=== PATIENT | male | born 1995 | race Caucasian/White ===

== ENCOUNTER 2023-01-15 21:58 | Emergency (ER) | payer SELFPAY ==
[2023-01-15 22:05] VITALS: BP 148/78; PULSE 87; RESP 18; TEMP 36.6; O2SAT 98; BMI 36.5
--- NOTE | 2023-01-15 22:10 | ECG_ITS ---
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 Measurements Intervals [place] Rate: 82 P: 41 ME: 161 QRS: -5 QRSD: 76 T: 61 QT: 342 QTc: 400 Interpretive Statements SINUS RHYTHM No previous ECG available for comparison Electronically Signed On 01-16-2023 8:17:50 BAR POINTER by David Stephenson M.D. [id number]
--- NOTE | 2023-01-15 22:10 | XRR_ITS ---
PROCEDURE INFORMATION: Exam: XR Chest Exam date and time: 01/15/2023 10:38 PM Age: 27 years old Clinical indication: Chest wall pain; Additional info: Chest pain TECHNIQUE: Imaging protocol: Radiologic exam of the chest. Views: 1 view. COMPARISON: No relevant prior studies available. FINDINGS: Lungs: Unremarkable. No consolidation. Pleural spaces: Unremarkable. No pleural effusion. No pneumothorax. Heart/Mediastinum: Unremarkable. No cardiomegaly. Bones/joints: Unremarkable. XR/XR chest 1V portable [id number] IMPRESSION: No acute findings.
--- NOTE | 2023-01-15 22:34 | ED_ITS ---
HPI - Chest Pain 2 General: Chief Complaint: Chest Pain Stated Complaint: CP Time Seen by Provider: 01/15/23 22:24 Source: patient and family Mode of arrival: ambulatory Limitations: no limitations History of Present Illness: Patient presents emergency department tonight accompanied by his for evaluation treatment of recurrent episodes of epigastric, left upper quadrant, and left-sided chest pains. Patient reports that for several months he has been having these episodes off and on. He notes that they are typically associated with eating but usually resulted in him feeling extremely nauseated, having emesis, and chest pains/upper abdominal pains. Patient states that this evening he was lying on the couch after eating dinner and was on his phone. He states he started to feel dizzy. He went to the bathroom thinking he needed to have a bowel movement and reports continued symptoms of dizziness. He reports 2 episodes of vomiting. He reports blurry vision. He notes that blurry vision and nausea have resolved but he still has discomfort in his epigastric and left upper quadrant region. Patient states it does not matter what types of food he eats when the symptoms start. They had tried some probiotics and an acids in the past but have not noticed it helping his symptoms and have therefore stopped. Review of Systems 2 General: Reports: 10 or more systems reviewed and unremarkable except in HPI and below Physical Exam 2 Const: COMMON NORMALS: no acute distress, patient oriented x3 and alert HENMT: COMMON NORMALS: normocephalic, atraumatic, hearing grossly normal bilaterally and moist oral mucous membranes HEAD & SCALP: normocephalic and atraumatic Eye: COMMON NORMALS: Equal, round and reactive pupils present, EOMs intact bilaterally and conjunctivae normal CONJUNCTIVA: Yes conjunctivae normal P UPIL: Yes Equal, round and reactive pupils present Neck/C-Spine: COMMON NORMALS: full ROM and no JVD Lymph: LYMPHATIC: no lymphadenopathy noted Resp: COMMON NORMALS: normal respiratory effort, No retractions, No use of accessory muscles and clear to auscultation bilaterally AUSCULTATION: clear to auscultation bilaterally Cardio: COMMON NORMALS: no JVD, regular rate and regular rhythm RATE: r egular rate RHYTHM: regular rhythm GI: OTHER: Normoactive bowel sounds throughout. Patient was tender on palpation in the epigastric region in the left upper quadrant however, these areas are soft. No palpable splenomegaly. Patient was nontender in the right upper quadrant- Hsu's negative. : COMMON NORMALS: Yes no CVA tenderness BLADDER/KIDNEY EXAM: Yes no CVA tenderness Back/Pelvis: COMMON NORMALS: no CVA tenderness, no thoracic nor lumbar tenderness and thoraco-lumbar ROM normal Extremity: COMMON NORMALS: normal to inspection, full ROM and capillary refill normal Neuro: COMMON NORMALS: patient oriented x3 SENSORIUM/ORIENTATION: Yes alert Psych: COMMON NORMALS: mental status grossly normal, Normal thought process present, cooperative, normal affect and activity/motor behavior normal T HOUGHT PROCESS: Normal thought process present Skin: COMMON NORMALS: no rashes or lesions noted and no wounds GENERAL SKIN EXAM: no rashes or lesions noted Course 2 Vital Signs: Vital signs: Vital Signs Temperature 97.9 F 01/15/23 22:05 Pulse Rate 88 01/16/23 00:28 Respiratory Rate 18 01/16/23 00:28 Blood Pressure 146/90 01/16/23 00:28 Pulse Oximetry 97 01/16/23 00:28 Oxygen Delivery Me thod Room Air 01/15/23 22:05 MDM - Chest Pain Medical Decision Making Patient presents today with recurrent epigastric and radiating chest pain associated with meals. Patient reports pain radiating across the left upper quadrant and into his back with nausea, vomiting, dizziness. Lab work today shows no signs of any cardiac involvement. Lab work is otherwise normal without signs of infection, anemia, elevated LFTs, dehydration, electrolyte imbalance, or pancreatitis. Patient was treated with a GI cocktail and given IV Pepcid and Protonix. We discussed continuing a PPI and an H2 gerson on a regular basis for up to 4 weeks to see if symptoms improve. However, we discussed following up with primary care-patient does not have a primary care but, his indicates she does work at a medical clinic and can get him follow-up. Discussed the importance of follow-up as patient may need a referral to GI to discuss an upper endoscopy if symptoms continue. Patient was given return precautions for change in condition including profuse vomiting, vomiting with bright red blood or coffee-ground emesis, change or worsening of pain, syncope, or chest pain that does not resolve. Patient verbalizes understanding and agreement to treatment plan. Differential Diagnosis Unlikely acute massive pulmonary embolism, acute respiratory failure, acute myocardial infarction, cardiac arrest or sudden cardiac Lab Data 01/15/23 22:35 12/03/23 22:35 Radiology Impressions Chest X-Ray 01/15/23 22:10 IMPRESSION: No acute findings. Laboratory Results WBC 8.10 10^3/uL (3.29-11.43) 01/15/23 22:35 RBC 5.16 10^6/uL (3.85-5.65) 01/15/23 22:35 Hgb 15.20 g/dL (11.27-16.99) 01/15/23 22:35 Hct 44.6 % (37-53) 01/15/23 22:35 MCV 86.4 fl (82-101) 01/15/23 22:35 MCH 29.5 pg (27-33) 01/15/23 22:35 MCHC 34.1 g/dL (30-55) 01/15/23 22:35 RDW 12.9 % (12.1-15.1) 01/15/23 22:35 Plt Count 253 10^3/cmm (157-399) 01/15/23 22:35 MPV 10.2 fL (7.4-10.4) 01/15/23 22:35 Neut % (Auto) 54.9 % 01/15/23 22:35 Lymph % (Auto) 34.0 % 01/15/23 22:35 [place] % (Auto) 8.5 % 01/15/23 22:35 Eos % (Auto) 2.0 % 01/15/23 22:35 Baso % (Auto) 0.4 % 01/15/23 22:35 Neut # (Auto) 4.45 10^3/uL (1.8-7.7) 01/15/23 22:35 Lymph # (Auto) 2.8 10^3/uL (0.8-4.8) 01/15/23 22:35 [place]well # (Auto) 0.7 10^3/uL (0.2-0.9) 01/15/23 22:35 Eos # (Auto) 0.2 10^3/uL (0.0-0.8) 01/15/23 22:35 Baso # (Auto) 0.0 10^3/uL (0.0-0.1) 01/15/23 22:35 Nucleated RBC % (auto) 0 % 01/15/23 22:35 Nucleated RBCs # 0.0 /100WBC 01/15/23 22:35 Sodium 140 mmol/L (136-145) 01/15/23 22:35 Potassium 3.9 mmol/L (3.5-5.1) 01/15/23 22:35 Chloride 105 mmol/L (98-107) 01/15/23 22:35 Carbon Dioxide 26 mmol/L (22-29) 01/15/23 22:35 Anion Gap 12.9 (5-19) 01/15/23 22:35 BUN 19 mg/dL (6-20) 01/15/23 22:35 Creatinine 1.0 mg/dL (0.7-1.2) 01/15/23 22:35 GFR Calculation 89.6 mL/min (90-130) L 01/15/23 22:35 Glucose 130 mg/dL (65-115) H 01/15/23 22:35 Calculated Osmolality 294 mOsm/kg (285-295) 01/15/23 22:35 Calcium 9.7 mg/dL (8.5-10.5) 01/15/23 22:35 Total Bilirubin 0.2 mg/dL (0.15-1.2) 01/15/23 22:35 AST 15 U/L (0-40) 01/15/23 22:35 ALT 30 U/L (0-41) 01/15/23 22:35 Alkaline Phosphatase 66 U/L (40-130) 01/15/23 22:35 Troponin T Baseline < 6 ng/L (0-15) 01/15/23 22:35 Troponin T 120 Minute 6.00 ng/L (0-15) 01/16/23 00:08 Delta Troponin T 0.95603 ABS# (0-10) 01/16/23 00:08 Total Protein 6.5 g/dL (6.6-8.7) L 01/15/23 22:35 Albumin 4.4 g/dL (3.5-5.2) 01/15/23 22:35 Globulin 2.1 g/dL (1.3-4.6) 01/15/23 22:35 Lipase 32 U/L (13-60) 01/15/23 22:35 All radiology interpretation(s) finalized by discharge Discharge Plan Discharge Patient Disposition: Home Clinical Impression: Abdominal pain, epigastric Condition: Stable Prescriptions: New Protonix 40 mg tablet,delayed release (DR/EC) 40 mg PO DAILY 28 Days Qty: 30 0RF Pepcid 20 mg tablet 20 mg PO BID 30 Days Qty: 60 0RF Discharge Orders: Discharge ED (Routine); Ordered 01/16/23 Ordered By: Lizette Waldron Discharge Diet: Advance as tolerated Discharge Activity: Increase activity as tolerated Patient Instructions: Epigastric Pain (ED) Activity Restrictions/Additional Instructions: Lab work today showed no acute concerns involving your heart or lungs. Your pancreatic enzymes were within normal limits and your lab work for concerns for gallbladder disease were also within normal limits. He had no signs of an elevated white blood cell count concerning for infection no signs of a decreased red blood cell count concerning for a bleeding ulcer. It is still possible that you might have a hernia but, certain hernias can slide in and out and are often not caught on imaging. It is also possible you could have strictures in your upper GI tract causing discomfort or spasming. I am going to treat you as we would with oral medication for these conditions. However, I do think it is a good idea to have follow-up with your primary care doctor. If you continue to have issues with your symptoms even with treatment it might be beneficial to have someone refer you onto a GI doctor to discuss an upper endoscopy to look more closely in the upper GI tract for any abnormalities. However, if you begin running fever, have profuse vomiting, have vomiting of bright red blood or coffee ground emesis, severe worsening or change of your abdominal pains-we do recommend returning for an evaluation through the ER. Coding Level of Care Code ED Marketing Communications Coordinator for Billy Echevarria
[2023-01-15 22:50] LABS: Basophils % 0.4 %; Eosinophils # 0.2 10^3/uL (0.0-0.8); Hematocrit 44.6 % (37-53); Lymphocytes # 2.8 10^3/uL (0.8-4.8); Mean Corpuscular HGB Conc 34.1 g/dL (30-55); Mean Corpuscular Hemoglobin 29.5 pg (27-33); Mean Corpuscular Volume 86.4 fl (82-101); Mean Platelet Volume 10.2 fL (7.4-10.4); Monocytes # 0.7 10^3/uL (0.2-0.9); Monocytes % 8.5 %; Neutrophils # 4.45 10^3/uL (1.8-7.7); Neutrophils % 54.9 %; Nucleated Red Blood Cells % 0 %; Platelet Count 253 10^3/cmm (157-399); Red Blood Count 5.16 10^6/uL (3.85-5.65); Red Cell Distribution Width 12.9 % (12.1-15.1)
[2023-01-15 23:13] LABS: Alanine Aminotransferase 30 U/L (0-41); Albumin Level 4.4 g/dL (3.5-5.2); Alkaline Phosphatase 66 U/L (40-130); Anion Gap 12.9 (5-19); Aspartate Amino Transferase 15 U/L (0-40); Blood Urea Nitrogen 19 mg/dL (6-20); Calcium 9.7 mg/dL (8.5-10.5); Carbon Dioxide 26 mmol/L (22-29); Chloride 105 mmol/L (98-107); Globulin 2.1 g/dL (1.3-4.6); Glomerular Filtration Rate 89.6 mL/min (90-130); Glucose 130 mg/dL (65-115); Lipase 32 U/L (13-60); Osmolality Calculated 294 mOsm/kg (285-295); Potassium 3.9 mmol/L (3.5-5.1); Sodium 140 mmol/L (136-145); Total Bilirubin 0.2 mg/dL (0.15-1.2); Total Protein 6.5 g/dL (6.6-8.7)
[2023-01-15 23:14] LABS: Troponin(5th) Baseline < 6 ng/L (0-15)
[2023-01-15] MEDS: lidocaine 2% viscous 15 ML, aluminum-mag hydrox-simethicon 30 ML, sucralfate oral liq 1 GM PO (23:30)
[2023-01-16] MEDS: pantoprazole 40 mg SDV IVP (00:09)
[2023-01-16] MEDS: famotidine 20 mg/2 mL INJ IVP (00:12)
[2023-01-16 00:28] VITALS: BP 146/90; PULSE 88; RESP 18; O2SAT 97
[2023-01-16 00:30] LABS: Troponin 5 2HR Delta 0.00001 ABS# (0-10)
== END 2023-01-16 00:29 | disposition home or self-care (01) ==
PROVIDERS: Emergency Medicine; Emergency Provider Physician Assistant
DX: R10.13 Epigastric pain (principal)
CPT/HCPCS: 36415; 71045; 80053; 83690; 84484; 85025; 93005; 96374; 96375; 99285; C9113; J3490

== ENCOUNTER 2023-05-02 07:55 | Outpatient (CLI) | payer SELFPAY ==
--- NOTE | 2023-05-02 08:15 | US_ITS ---
WS: [id number] Complete ABDOMINAL ULTRASOUND HISTORY: R10.9 - Unspecified abdominal pain COMPARISON: None available. Liver: 16.9 cm in length. Normal size liver and echogenicity. No bile duct dilatation or mass. Portal Vein: Normal hepatopetal flow with monophasic waveform. Gallbladder: Normally distended gallbladder with no stones or wall thickening. CBD: 0.3 cm Pancreas: Not visualized. Right kidney: 11.3 cm x 5.0 x 5.7 cm. Cortex:1.2 cm. Normal size and echogenicity. No hydronephrosis or mass. Left kidney: 11.5 cm x 4.4 cm x 5.2 cm. Cortex: 1.7 cm. Normal size and echogenicity. No hydronephrosis or mass. Spleen: 12.7 cm. Normal size and echogenicity. Aorta and IVC: Unremarkable abdominal aorta and IVC. Impression: 1. Pancreas not visualized. 2. The remaining abdominal ultrasound is negative. Normal gallbladder.
== END 2023-05-02 07:56 | disposition home or self-care (01) ==
LOC: RAD 07:55
PROVIDERS: PCP Nurse Practitioner; Visit Provider Nurse Practitioner
DX: R10.9 Unspecified abdominal pain (principal); R14.0 Abdominal distension (gaseous)
CPT/HCPCS: 76700